=== PATIENT | female | born 1995 | race Hispanic/Latino ===

== ENCOUNTER 2023-10-17 04:30 | Emergency (ER) | payer SELFPAY ==
[2023-10-17 04:36] VITALS: BP 143/94
[2023-10-17 05:00] VITALS: BMI 23.7
[2023-10-17] MEDS: NSS 1000 IV (05:22)
[2023-10-17 05:28] LABS: % Basophils 0.5 % (0-2); % Eosinophils 1.4 % (0-6); % Immature Granulocytes 0.2 % (0-0.5); % Lymphocytes 26.3 % (20.5-51.1); % Monocytes 13.3 % (1.7-9.3); % Neutrophils 58.3 % (42.2-75.2); Absolute Eosinophils 0.1 10^3/uL (0-0.7); Absolute Lymphocytes 2.2 10^3/uL (1.2-3.4); Absolute Monocytes 1.1 10^3/uL (0.1-0.6); Absolute Neutrophils 4.9 10^3/uL (1.4-6.5); Hematocrit 37.1 % (37.0-47.0); Hemoglobin 13.2 g/dL (12.0-16.0); Mean Corp Hgb Conc. 35.6 g/dL (33.0-37.0); Mean Corpuscular Hgb 32.1 pg (27.0-31.0); Mean Corpuscular Volume 90.3 fL (81.0-99.0); Mean Platelet Volume 11.4 fL (7.4-10.4); Nucleated Red Blood Cells % 0 %; Platelet Count 278 10^3/uL (130-400); Red Blood Cell Count 4.11 10^6/uL (4.20-5.40); Red Cell Dist. Width 12.5 % (11.5-14.5); White Blood Cell Count 8.4 10^3/uL (4.8-10.8)
[2023-10-17 05:34] LABS: ALT (SGPT) 29 U/L (0-35); AST (SGOT) 25 U/L (14-36); Albumin 4.2 g/dl (3.5-5.0); Alkaline Phosphatase 77 U/L (38-126); Blood Urea Nitrogen 10 mg/dl (7-17); Calcium 9.3 mg/dl (8.4-10.2); Carbon Dioxide 25 mmol/L (22-30); Chloride 101 mmol/L (98-107); Estimated Creatinine Clearance 105 ml/min; Glucose 97 mg/dl (70-99); Potassium 3.5 mmol/L (3.5-5.1); Sodium 136 mmol/L (135-145); Total Bilirubin 0.5 mg/dl (0.2-1.3); eGFR > 60.00
--- NOTE | 2023-10-17 05:42 | ED.GENMED ---
History of Present Illness
<Marty Su DO - Last Filed: 10/17/23 06:35>
General
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
Source: patient
Exam Limitations: none
Time Seen by Provider: 10/17/23 05:00
Nursing documentation reviewed up to this point in time: agreed with
Travel History
Have you had any contact with someone who has COVID-19?: No
Do you have any symptoms of coronavirus? Fever > 100 degrees, chills, cough, shortness of breath, sore throat, loss of taste or smell, muscle aches, or headache?: No
History of Present Illness
History of Present Illness:
Patient is a 28-year-old Divehi-speaking female that presents with vaginal bleeding. She states that it only occurs when she urinates. She filled the toilet with blood this evening. She states that at 3 AM she started with some cramping. She is
6 weeks and had not had an ultrasound. Denies any previous medical history. Denies any surgical history. Not on any blood thinners. She does not take any medications. She has not seen OB yet.
Phy Exam
<Marty Su DO - Last Filed: 10/17/23 06:35>
General Physical Exam
General Presentation: well appearing and no apparent distress
General Skin: warm and dry
General Habitus: normal
General Mental: alert
General Hydration: appears well hydrated
ENT Exam
ENT Exam: EOMI, pharynx normal, neck supple and normocephalic
Eye Exam
Eye Exam: PERRL, cornea clear and conjunctiva normal
Cardiovascular Exam
Cardiovascular Exam: regular rate/rhythm, no edema, no murmur and normal peripheral pulses
Pulmonary Exam
Pulmonary Exam: lungs clear, no respiratory distress, no rales, no crackles, no rhonchi, no stridor, no wheezing and no cough
Gastrointestinal Exam
Gastrointestinal Exam: normal bowel sounds, non tender, soft, no organomegaly, no pulsatile mass and non distended
Neurological Exam
Neurological Exam: alert, oriented x3, no motor deficits and speech normal
Musculoskeletal Exam
Musculoskeletal Exam: full ROM and no edema
Skin Exam
Skin Exam: normal color, warm/dry, no rash and no petechia
Psychiatric Exam
Psychiatric Exam: normal mood/affect
Course
<Marty Su, DO - Last Filed: 10/17/23 06:35>
Orders/Labs/Results
Orders:
Orders
10/17/23 05:12
Type+Screen Urgent
Beta HCG Quantitative Urgent
Is this a screen?: No
Complete Blood Count/With Diff Urgent
Comprehensive Metabolic Panel Urgent
10/17/23 05:18
US W Transvaginal Urgent
Reason For Exam: vaginal bleeding R/O miscarriage
10/17/23 05:22
0.9% Sodium Chloride 1000 ml [Nss] 1,000 ml IV BOLUS
Abnormal Lab Results
10/17/23
05:12
RBC 4.11 L 10^6/uL
(4.20-5.40)
MCH 32.1 H pg
(27.0-31.0)
MPV 11.4 H fL
(7.4-10.4)
Absolute Monos (auto) 1.1 H 10^3/uL
(0.1-0.6)
Monocytes % 13.3 H %
(1.7-9.3)
Creatinine 0.4 L mg/dL
(0.6-1.0)
10/17/23 05:12
10/17/23 05:12
Vital Signs
Initial and Last Documented VS:
Initial Vital Signs
Temp Pulse Resp BP Pulse Ox
97.9 F 88 16 143/94 100
10/17/23 04:36 10/17/23 04:36 10/17/23 04:36 10/17/23 04:36 10/17/23 04:36
Last Documented Vital Signs
Temp Pulse Resp BP Pulse Ox
97.9 F 85 20 133/93 100
10/17/23 04:36 10/17/23 08:30 10/17/23 08:30 10/17/23 08:30 10/17/23 08:30
<Jona Judge, DO - Last Filed: 10/17/23 13:04>
Orders/Labs/Results
Orders:
Orders
10/17/23 05:12
Type+Screen Urgent
Beta HCG Quantitative Urgent
Is this a screen?: No
Complete Blood Count/With Diff Urgent
Comprehensive Metabolic Panel Urgent
10/17/23 05:18
US W Transvaginal Urgent
Reason For Exam: vaginal bleeding R/O miscarriage
10/17/23 05:22
0.9% Sodium Chloride 1000 ml [Nss] 1,000 ml IV BOLUS
Abnormal Lab Results
10/17/23
05:12
RBC 4.11 L 10^6/uL
(4.20-5.40)
MCH 32.1 H pg
(27.0-31.0)
MPV 11.4 H fL
(7.4-10.4)
Absolute Monos (auto) 1.1 H 10^3/uL
(0.1-0.6)
Monocytes % 13.3 H %
(1.7-9.3)
Creatinine 0.4 L mg/dL
(0.6-1.0)
10/17/23 05:12
10/17/23 05:12
Vital Signs
Initial and Last Documented VS:
Initial Vital Signs
Temp Pulse Resp BP Pulse Ox
97.9 F 88 16 143/94 100
10/17/23 04:36 10/17/23 04:36 10/17/23 04:36 10/17/23 04:36 10/17/23 04:36
Last Documented Vital Signs
Temp Pulse Resp BP Pulse Ox
97.9 F 85 20 133/93 100
10/17/23 04:36 10/17/23 08:30 10/17/23 08:30 10/17/23 08:30 10/17/23 08:30
<Jona Judge, DO - Last Filed: 10/17/23 13:04>
*Critical Care Note
Total Time (30-74mins, 75-104mins- exclusive of procedures): Not Applicable
<Jona Judge, DO - Last Filed: 10/17/23 13:04>
Update Note
Update Note:
Update 6 AM ER attending signout pending type and Rh and ultrasound both of which are noted suspect completed AB, patient will require some follow-up will try to arrange has no PCP or OB lives and oriented
ED Attending Note
<Marty Su, DO - Last Filed: 10/17/23 06:35>
-
Portions of this chart may have been created with voice recognition software.� Occasional wrong word or��sound alike� substitutions may have occurred due to the inherent limitations of voice recognition software.
Discharge Plan
Departure
Patient Disposition: Home (Routine Discharge)
Date of Disposition: 10/17/23
Time of Disposition: 08:10
Patient with high blood pressure during this ER visit?: No
Condition: Good
Discharge Problem:
Complete miscarriage
Instructions: Amenaza de aborto espontágood, Miscarriage (DC)
Prescriptions:
No Action
No Current Medications
0
Referrals:
Sourav Kenney MD [Active] -
NONE,* [Family Provider] -
Interventions
Interventions:
*Risk Screen - Suicide Last Done: 10/17/23 04:36
*General Assessment Last Done: 10/17/23 04:36
*Neglect/Abuse Screening Last Done: 10/17/23 04:36
ED- Fall Risk Assessment Last Done: 10/17/23 04:42
*ED COVID-19 Vaccine History Last Done: 10/17/23 04:36
*Nursing Disposition Last Done: 10/17/23 08:30
ED-Female Genitourinary Assessment Last Done: 10/17/23 05:04
Discharge Date and Time
Discharge Date/Time: 10/17/23 08:30
Print Language: MAURITANIAN
[2023-10-17 05:57] LABS: Beta HCG Quantitative 7.31 mIU/ml
[2023-10-17 06:06] VITALS: BP 124/92
[2023-10-17 07:07] VITALS: BP 118/87
[2023-10-17 08:30] VITALS: BP 133/93
== END 2023-10-17 08:30 | disposition home or self-care (01) ==
LOC: EMR 04:30
PROVIDERS: Student in an Organized Health Care Education/Training Program; EMERGENCY PHYSICIAN Emergency Medicine
DX: O03.9 Complete or unspecified spontaneous abortion without complication (principal)
CPT/HCPCS: 99284; 96360; 96361; 76801; 76817; 80053; 84702; 85025; 86850; 86900; 86901

== ENCOUNTER → 2024-03-23 10:57 | Outpatient (REF) | payer OTHER, SELFPAY | LOC: HWRAD 10:57 | PROVIDERS: ATTENDING PHYSICIAN Internal Medicine | DX: O03.9 Complete or unspecified spontaneous abortion without complication (principal) | CPT/HCPCS: 76830; 76856 ==

== ENCOUNTER → 2024-10-29 09:46 | Outpatient (REF) | payer OTHER, SELFPAY | LOC: CLINIC 09:46 | PROVIDERS: ATTENDING PHYSICIAN Family Medicine | DX: Z12.4 Encounter for screening for malignant neoplasm of cervix (principal) | CPT/HCPCS: 87491; 87591; 87624; G0123 ==

== ENCOUNTER → 2024-12-03 11:26 | Outpatient (REF) | payer OTHER, SELFPAY ==
[2024-12-03 12:22] LABS: % Basophils 0.6 % (0-2); % Eosinophils 1.2 % (0-6); % Immature Granulocytes 0.1 % (0-0.5); % Lymphocytes 31.6 % (20.5-51.1); % Monocytes 10.5 % (1.7-9.3); Absolute Eosinophils 0.1 10^3/uL (0-0.7); Absolute Lymphocytes 2.2 10^3/uL (1.2-3.4); Absolute Monocytes 0.7 10^3/uL (0.1-0.6); Absolute Neutrophils 3.8 10^3/uL (1.4-6.5); Hemoglobin 12.9 g/dL (12.0-16.0); Mean Corp Hgb Conc. 33.9 g/dL (33.0-37.0); Mean Corpuscular Hgb 31.1 pg (27.0-31.0); Mean Corpuscular Volume 91.6 fL (81.0-99.0); Mean Platelet Volume 11.2 fL (7.4-10.4); Nucleated Red Blood Cells % 0 %; Platelet Count 261 10^3/uL (130-400); Red Blood Cell Count 4.15 10^6/uL (4.20-5.40); Red Cell Dist. Width 13.2 % (11.5-14.5); White Blood Cell Count 6.8 10^3/uL (4.8-10.8)
[2024-12-03 13:12] LABS: ALT (SGPT) 33 U/L (0-35); AST (SGOT) 30 U/L (14-36); Albumin 5.1 g/dl (3.5-5.0); Alkaline Phosphatase 89 U/L (38-126); Blood Urea Nitrogen 10 mg/dl (7-17); Calcium 9.4 mg/dl (8.4-10.2); Carbon Dioxide 24 mmol/L (22-30); Chloride 104 mmol/L (98-107); Glucose 86 mg/dl (70-99); Potassium 4.6 mmol/L (3.5-5.1); Sodium 138 mmol/L (135-145); Total Bilirubin 0.5 mg/dl (0.2-1.3); Total Protein 7.9 g/dl (6.3-8.2); eGFR > 60.00
[2024-12-03 13:23] LABS: FSH 1.9 mIU/ml; Luteinizing Hormone 1.22 mIU/ml; Progesterone 9.16 ng/ml; Prolactin 8.9 ng/ml (3.0-18.6)
[2024-12-03 13:38] LABS: TSH Reflex To Free T4 0.87 uIU/ml (0.47-4.68)
== END ==
LOC: CLINIC 11:26
PROVIDERS: ATTENDING PHYSICIAN Family Medicine
DX: N97.9 Female infertility, unspecified (principal)
CPT/HCPCS: 36415; 80053; 83001; 83002; 83498; 84144; 84146; 84443; 85025

== ENCOUNTER 2025-02-01 09:55 | Emergency (ER) | payer SELFPAY ==
[2025-02-01 10:13] VITALS: BP 128/86
[2025-02-01 10:45] LABS: % Basophils 0.5 % (0-2); % Eosinophils 1.5 % (0-6); % Immature Granulocytes 0.2 % (0-0.5); % Lymphocytes 35.7 % (20.5-51.1); % Monocytes 9.8 % (1.7-9.3); % Neutrophils 52.3 % (42.2-75.2); Absolute Eosinophils 0.1 10^3/uL (0-0.7); Absolute Lymphocytes 2.2 10^3/uL (1.2-3.4); Absolute Monocytes 0.6 10^3/uL (0.1-0.6); Absolute Neutrophils 3.2 10^3/uL (1.4-6.5); Hematocrit 35.6 % (37.0-47.0); Hemoglobin 12.4 g/dL (12.0-16.0); Mean Corp Hgb Conc. 34.8 g/dL (33.0-37.0); Mean Corpuscular Hgb 30.7 pg (27.0-31.0); Mean Corpuscular Volume 88.1 fL (81.0-99.0); Mean Platelet Volume 11.3 fL (7.4-10.4); Nucleated Red Blood Cells % 0 %; Platelet Count 247 10^3/uL (130-400); Red Blood Cell Count 4.04 10^6/uL (4.20-5.40); Red Cell Dist. Width 12.6 % (11.5-14.5)
[2025-02-01 10:56] LABS: HCG, Serum Qualitative Screen Negative
[2025-02-01 11:00] LABS: AST (SGOT) 29 U/L (14-36); Albumin 4.6 g/dl (3.5-5.0); Blood Urea Nitrogen 11 mg/dl (7-17); Calcium 9.1 mg/dl (8.4-10.2); Carbon Dioxide 26 mmol/L (22-30); Chloride 109 mmol/L (98-107); Potassium 4.1 mmol/L (3.5-5.1); Sodium 141 mmol/L (135-145); Total Bilirubin 0.5 mg/dl (0.2-1.3); Total Protein 7.5 g/dl (6.3-8.2); eGFR > 60.00
[2025-02-01 11:13] LABS: ALT (SGPT) 34 U/L (0-35); Alkaline Phosphatase 78 U/L (38-126); Glucose 91 mg/dl (70-99)
--- NOTE | 2025-02-01 12:43 | ED.GENMED ---
History of Present Illness
General
Chief Complaint: Generalized Pain
Time Seen by Provider: 02/01/25 12:28
History of Present Illness
History of Present Illness:
29-year-old female presents the emergency department for evaluation of generalized pain to the left side of her body for the past 2 weeks. [place] as though the pain was worse yesterday. Denies any palliating or provoking factors. No recent fevers
or chills. Denies any outdoor/wilderness exposure or tick bites. Does not take any [id number] or prescription medications. Denies weight loss or night sweats
Review of Systems
Review of Systems
Allergies reviewed?: Yes
All Other Systems: ROS reviewed and negative except as documented in HPI and ROS
Phy Exam
Physical Exam
Physical Exam:
GEN: Well appearing, NAD, WDWN
HEENT: Oral mucosa moist, no scleral icterus
Cardiac: Regular rate
Lung: No respiratory distress, no tachypnea
MSK: No gross deformity or injuries
Skin: Good color, no pallor or jaundice, no rashes
Neuro: AO x3, moves all extremities freely, CN II-XII grossly intact; BUE/BLE strength intact and symmetric. Normal sensation throughout
Psych: Calm, cooperative
Course
Orders/Labs/Results
Orders:
Orders
02/01/25 10:17
Test Result ONCE
02/01/25 10:30
C-Reactive Protein Urgent
Comment: ADD ON
Complete Blood Count/With Diff Urgent
Comprehensive Metabolic Panel Urgent
HCG, Serum Qualitative Screen Urgent
Comment: Notify provider if positive test present
Lyme Progressive Urgent
Comment: ADD ON
TSH Urgent
Comment: ADD ON
02/01/25 12:45
Add On- LAB Urgent
Tests Added?: TSH, CRP, Lyme
Abnormal Lab Results
02/01/25
10:30
RBC 4.04 L 10^6/uL
(4.20-5.40)
Hct 35.6 L %
(37.0-47.0)
MPV 11.3 H fL
(7.4-10.4)
Monocytes % 9.8 H %
(1.7-9.3)
Chloride 109 H mmol/L
(98-107)
Creatinine 0.5 L mg/dL
(0.6-1.0)
02/01/25 10:30
02/01/25 10:30
Vital Signs
Initial and Last Documented VS:
Initial Vital Signs
Temp Pulse Resp BP Pulse Ox
98 F 74 16 128/86 98
02/01/25 10:13 02/01/25 10:13 02/01/25 10:13 02/01/25 10:13 02/01/25 10:13
Last Documented Vital Signs
Temp Pulse Resp BP Pulse Ox
98 F 74 16 128/86 98
02/01/25 10:13 02/01/25 10:13 02/01/25 10:13 02/01/25 10:13 02/01/25 10:13
MDM/Problems Addressed
MDM/Problems Addressed:
Unclear etiology to the patient's symptoms. She has an unremarkable neurologic exam with no signs of weakness worrisome for CVA or spinal pathology. She has no rashes or signs of joint inflammation suggesting autoimmune condition. Labs are
reassuring. Although she has no exposure risk we will send a Lyme titer for completeness
*Critical Care Note
Total Time (30-74mins, 75-104mins- exclusive of procedures): Not Applicable
ED Attending Note
-
Portions of this chart may have been created with voice recognition software.� Occasional wrong word or��sound alike� substitutions may have occurred due to the inherent limitations of voice recognition software.
Discharge Plan
Departure
Patient Disposition: Home (Routine Discharge)
Date of Disposition: 02/01/25
Time of Disposition: 12:44
Patient with high blood pressure during this ER visit?: No
Discharge Problem:
Generalized pain
Instructions: Muscle, joint, and bone pain - Discharge instructions
Prescriptions:
No Action
No Current Medications
0
Activity Restrictions/Additional Instructions:
[facility]
[phone]
[address]
[place] [id number]
La causa de muller dolor no est� fred; sin embargo, hemos a�adido algunas pruebas adicionales a muller an�lisis de juan jose. Los resultados se obtendr�n m�s rosiete y muller m�dico de cabecera podr� realizarle un seguimiento. [place] 400 mg de ibuprofeno cada 6-8
horas para controlar el dolor.
Interventions
Interventions:
*Risk Screen - Suicide Last Done: 02/01/25 10:13
*Neglect/Abuse Screening Last Done: 02/01/25 10:13
*Nursing Disposition Last Done: 02/01/25 13:15
Discharge Date and Time
Discharge Date/Time: 02/01/25 13:16
Print Language: SAUDI ARABIAN
[2025-02-01 13:30] LABS: C-Reactive Protein < 5.00 mg/L (0.0-10.00)
[2025-02-01 14:01] LABS: TSH 1.15 uIU/ml (0.47-4.68)
[2025-02-03 13:11] LABS: Lyme Antibody Screen, EIA Negative (Negative)
== END 2025-02-01 13:16 | disposition home or self-care (01) ==
LOC: EMR 09:55
PROVIDERS: Emergency Medicine; EMERGENCY PHYSICIAN Student in an Organized Health Care Education/Training Program
DX: R52 Pain, unspecified (principal)
CPT/HCPCS: 99283; 80053; 84443; 84703; 85025; 86140; 86618